=== PATIENT | female | born 1965 | race African-American/Black ===

== ENCOUNTER 2018-06-21 19:00 | Outpatient (CLI) | payer BC | END 2018-06-21 23:59 | disposition home or self-care (01) | LOC: D.MAMMO 19:00 | PROVIDERS: ATTEND Orthopaedic Surgery | DX: Z12.31 Encounter for screening mammogram for malignant neoplasm of breast (principal) ==

== ENCOUNTER 2019-01-25 10:00 | Outpatient (CLI) | payer BC | END 2019-01-25 10:30 | disposition home or self-care (01) | LOC: D.MAMMO 10:00 | PROVIDERS: ATTEND Family Medicine | DX: R92.8 Other abnormal and inconclusive findings on diagnostic imaging of breast (principal) ==

== ENCOUNTER 2019-09-01 06:04 | Day surgery (SDC) | payer BC ==
[~2019-09-01] VITALS: Ht 162.6 cm; Wt 83.9 kg
[2019-09-01 06:31] LABS: HEMATOCRIT 39.2 % (36.0-48.0); HEMOGLOBIN 12.9 g/dL (12-16); MCH 30.9 pg (26.0-34.0); MCHC 32.9 g/dL (31.0-37.0); RBC 4.17 10x6/uL (4.00-5.40); RDW 13.4 % (11.5-14.5)
[2019-09-01] MEDS ORDERED: CYMBALTA60 MG PO (07:34)
[2019-09-01] MEDS ORDERED: IBUPROFEN600 MG PO (07:35)
[2019-09-01] MEDS ORDERED: HYDROCODON-ACE1 EAC7 PO (07:35)
[2019-09-01] MEDS ORDERED: BACLOFEN10 MG PO (07:37)
[2019-09-01] MEDS ORDERED: BUTALB-APAP-CA1 EACH (07:37)
[2019-09-01 07:43] VITALS: BP 138/73; Ht 162.6 cm; Wt 83.9 kg
[2019-09-01] MEDS ORDERED: PERCOCET 10-321 EAC1 PO (08:36)
[2019-09-01] MEDS ORDERED: DURICEF500 MG PO (08:36)
--- NOTE | 2019-09-01 10:33 | NUR ---
0950 IV DC'D. CATHETER TIP INTACT. NO BLEEDING AT SITE. BANDAID APPLIED. 1005 ASSISTED PT IN GETTING DRESSED. RIGHT ARM ELEVATED WTIH SLING. PT IS READY TO GO HOME
--- NOTE | 2019-09-02 08:22 | OP ---
PATIENT NAME: RODGER BUSH MEDICAL RECORD: [id number] :61 LOCATION:D.OPS ADMISSION DATE: SURGEON: AKI SOSA DO DATE OF OPERATION: 09/01/2019 PROCEDURE PERFORMED: Right volar wrist ganglion excision. PREOPERATIVE DIAGNOSIS: Right volar wrist ganglion cyst. POSTOPERATIVE DIAGNOSIS: Right volar wrist ganglion cyst. INDICATIONS: Ms. Bush is a 54-year-old female who has had a volar wrist ganglion for quite some time. It has become quite bothersome to her and it has affected her ability to work and to do anything and pick anything up and it was quite painful. She wanted something done surgically. An MRI was done to ensure that it was not an aneurysm of the radial artery and it was not, it was indeed a ganglion cyst. I informed her of the risks including infection, bleeding, damage to nerves or vessels, damage to the radial artery, recurrence of the cyst, which was very likely continued pain and she signed the consent. SURGEON: Aki Sosa DO DESCRIPTION OF PROCEDURE: The patient received a block by anesthesia in the preoperative area, was taken to the operative suite, given TIVA anesthesia and 2 grams of Ancef. The right upper extremity was then prepped and draped in sterile fashion. Timeout was performed, everyone was in agreeance with the correct side, site, patient and the procedure. The right upper extremity was then exsanguinated with an Esmarch, tourniquet was inflated to 250 mmHg, it was up for 10 minutes. I then made an incision over the volar aspect of the wrist on the radial side where the cyst was. I made careful dissection down to the cyst, it was exposed. It was just ulnar to the radial artery. Radial artery was retracted out of the way and the cyst was ruptured and then taken out. I went down to the stalk and removed it as well. I then deflated the tourniquet and watched for any bleeding. There was no significant bleeding. Then, I injected the site with 0.25% Marcaine with epinephrine, approximately 7 mL around the area. The site was then closed by Byron Ashby, certified surgical human resources benefits assistant with 4-0 Monocryl in a horizontal mattress fashion. This was then dressed with Adaptic, 4 x 4s, Kerlix and a Coban lightly wrapped on it. She was then awakened and taken to recovery in stable condition. BLOOD LOSS: Minimal. COMPLICATIONS: None. TRANSINT:[id number] Voice Confirmation ID: [id number] DOCUMENT ID: [id number] AKI SOSA DO at 0822 CC: [id number] DICTATION DATE: 09/01/19905 PAST DUE ACCOUNTS CLERK: 09/01/19 1439 [facility] 09/01/19 [place] [id number] [place] [id number]
== END 2019-09-01 10:15 | disposition home or self-care (01) ==
LOC: D.OPS 06:04 → D.PAN 09:00 → D.OPS 10:15
PROVIDERS: Anesthesiology; ATTEND Orthopaedic Surgery
DX: M67.431 Ganglion, right wrist (principal); K21.9 Gastro-esophageal reflux disease without esophagitis